=== PATIENT | male | born 2000 | race Two or more races ===

== ENCOUNTER 2024-11-10 10:00 | Emergency (ER) | payer OTHER ==
[~2024-11-10] VITALS: Ht 175.3 cm; Wt 84.1 kg
[2024-11-10 10:49] VITALS: BP 140/85; PULSE 96; RESP 18; TEMP 98.8; O2SAT 97
[2024-11-10] MEDS: KETOROLAC TROMETH 60MG/2ML VIAL IM ONE (11:39)
[2024-11-10] MEDS ORDERED: IBUP-1456 PO (11:58)
[2024-11-10] MEDS ORDERED: CEPH500C PO (11:58)
--- NOTE | 2024-11-10 12:01 | ED.PDOC ---
HPI Comments A 24-YEAR-OLD MALE PRESENTS WITH A CHIEF COMPLAINT OF LACERATION TO SCALP. PATIENT HAS AN IRREGULAR, COMPLEX LACERATION TO THE BACK OF HIS SCALP. PATIENT REPORTS THAT HE WAS SEEN AT [facility] AND HAD A CT SCAN OF HIS HEAD THAT WAS UNREMARKABLE. PATIENT REPORTS THAT HE FELL AND SCRAPPED THE BACK OF HIS HEAD ON THE FLOOR. LACERATION REPAIRED BY JAQUELINE BUT LACERATION STARTED BLEEDING TODAY WITH BLOOD CLOTS. PATIENT DENIES LOC OR HEADACHE AT THIS TIME. PATIENT DENIES VISION CHANGES, HEADACHE, EYE PAIN, NECK PAIN, OR ABDOMINAL PAIN. NO OTHER SYMPTOMS OR MODIFYING FACTORS PRESENT AT THIS TIME. Chief Complaint: Laceration Time Seen by MD: 11:50 Reviewed Notes: Nurses Notes, Medications, Allergies Home Meds Active Scripts Ibuprofen (Ibuprofen) 800 Mg Tab, 1 TAB PO TID, #30 TAB Prov:PEG PALACIOS 11/10/24 Cephalexin Monohydrate (Cephalexin) 500 Mg Cap, 1 CAP PO QID, #40 CAP Prov:PEG PALACIOS 11/10/24 Information Source: Patient Mode of Arrival: Ambulatory Severity: Moderate Severity of Laceration: Deformity, Controlled Bleeding Complexity: Complex Timing: Days Prehospital treatment: None Laceration Location: Head Last Tetanus: UTD Laceration Length (cm): 5 Skin Type: Irregular Depth of Injury: Skin Capillary Refill: < 3 seconds Associated Signs and Symptoms: None Past Medical History PAST MEDICAL HISTORY: Denies Surgical History: Denies all surgeries Family History Family History: Reviewed,noncontributory to illness Social History Smoker: Non-Smoker Alcohol: Denies ETOH Use Drugs: Denies Drug Use Lives In: Home Constitutional: denies: chills, diaphoresis, fatigue, fever, malaise, sweats, weakness, others EENTM: denies: blurred vision, double vision, ear bleeding, ear discharge, ear drainage, ear pain, ear ringing, eye pain, eye redness, hearing loss, mouth pain, mouth swelling, nasal discharge, nose bleeding, nose congestion, nose pain, photophobia, tearing, throat pain, throat swelling, voice changes, others Respiratory: denies: cough, hemoptysis, orthopnea, SOB at rest, shortness of breath, SOB with excertion, stridor, wheezing, others Cardiovascular: denies: chest pain, dizzy spells, diaphoresis, Dyspnea on exertion, edema, irregular heart beat, left arm pain, lightheadedness, palpitations, PND, syncope, others Gastrointestinal: denies: abdomen distended, abdominal pain, blood streaked bowels, constipated, diarrhea, dysphagia, difficulty swallowing, hematemesis, melena, nausea, poor appetite, poor fluid intake, rectal bleeding, rectal pain, vomiting, others Genitourinary: denies: burning, dysuria, flank pain, frequency, hematuria, incontinence, penile discharge, penile sore, pain, testicle pain, testicle swelling, urgency, others Neurological: denies: dizziness, fainting, headache, left sided numbness, left sided weakness, numbness, paresthesia, pre-existing deficit, right sided numbness, right sided weakness, seizure, speech problems, tingling, tremors, weakness, others Musculoskeletal: denies: back pain, gout, joint pain, joint swelling, muscle pain, muscle stiffness, neck pain, others Integumetry: reports: laceration (SCALP); denies: bruises, change in color, change in hair/nails, dryness, lesions, lumps, rash, wounds, others Allergic/Immunocompromised: denies: Difficulty Healing, Frequent Infections, Hives, Itching, others Hematologic/Lymphatic: denies: anemia, blood clots, easy bleeding, easy bruising, swollen glands, others Endocrine: denies: excessive hunger, excessive sweating, excessive thirst, excessive urination, flushing, intolerance to cold, intolerance to heat, unexplained weight gain, unexplained weight loss, others Psychiatric: denies: anxiety, bipolar disorder, depression, hopeless, panic disorder, schizophrenia, sleepless, suicidal, others All Other Systems: Reviewed and Negative Physical Exam General Appearance: No Apparent Distress, Normal HEENT: Head (SCALP LACERATION OPENED WITH BLOOD CLOTS, NO BONY TENDERNESS AND SWELLING, NO DEFORMITY. ), Normal ENT Inspection, PERRL/EOMI, Pharynx Normal, TMs Normal Neck: Full Range of Motion, Non-Tender, Normal, Normal Inspection Respiratory: Chest Non-Tender, Lungs Clear, No Accessory Muscle Use, No Respiratory Distress, Normal Breath Sounds Cardiovascular: No Edema, No JVD, No Murmur, No Gallop, Normal Peripheral Pulses, Regular Rate/Rhythm Breast Exam: Deferred Gastrointestinal: No Organomegaly, Non Tender, No Pulsatile Mass, Normal Bowel Sounds, Soft Genitalia: Deferred Pelvic: Deferred Rectal: Deferred Extremities: No calf tenderness, Normal capillary refill, Normal inspection, Normal range of motion, Non-tender, No pedal edema Musculoskeletal : Apperance: Normal Neurologic: Alert, theatrical agent II-XII nml as Tested, No Motor Deficits, Normal Affect, Normal Mood, No Sensory Deficits Cerebellar Function: Normal Reflexes: Normal Skin: Dry, Lacerations (5CM IRREGULAR LACERATION ON THE TOP OF SCALP WITH HEMATOMA AND BLOOD CLOTS, NO BLEEDING AND FB. ), Normal Color, Warm Peripheral Pulses: 2+ carotid (R), 2+ carotid (L) Lymphatic: No Adenopathy Was a procedure done? Was a procedure done?: Yes Sedation Sedation?: No Laceration Repair : Location TOP OF SCALP Length 5CM Laceration Repair Prep: Saline Laceration Repair Wound Comple: epidermis/dermis repair Laceration Repair: Number of sutures (10), SQ, Jaqueline, Gauze Informed consent obtained: No Risks, benefits, and alternati: Yes Notes OLD JAQUELINE REMOVED DUE TO BLOOD CLOTS. BLOOD CLOTS WERE CLEANED AND REMOVED AND NEW JAQUELINE WERE PLACED. PATIENT HAS TOTAL OF 10 JAQUELINE. Images 1 - 2 - Differential diagnosis Generic Laceration: Laceration X-Ray, Labs, Meds, VS Vital Signs Date Time Temp Pulse Resp B/P (MAP) Pulse Ox O2 Delivery O2 Flow Rate FiO2 11/10/24 10:49 96 18 97 Room Air 11/10/24 10:49 98.8 96 18 140/85 (103) 97 98.8 11/10/24 10:16 98.8 96 18 140/85 (103) 97 Current Medications Medications (Trade) Dose Ordered Sig/Benny Route Start Time Stop Time Status Last Admin Ketorolac Tromethamine (Toradol Injection) 30 mg ONCE ONCE IM 11/10/24 11:45 11/10/24 11:46 DC 11/10/24 11:39 X-Ray, Labs, Meds, VS Comment EXTERNAL MEDICAL RECORDS REVIEWED: [NONE] INDEPENDENT HISTORIANS: [NONE] SOCIAL DETERMINANTS OF HEALTH: [NONE] LABS ORDERED: NONE REVIEWED AND INTERPRETED RESULTS: NONE IMAGING ORDERED: NONE TREATMENTS ORDERED: JAQUELINE TO SCALP X 10 TOTAL PROCEDURES PERFORMED: LACERATION REPAIR AND TORADOL 60MG IM CRITICAL CARE TIME: NONE I HAVE DISCUSSED THE PATIENT WITH THE ATTENDING PHYSICIAN DR. MCKAY AND HE AGREES WITH THE PATIENT'S PLAN OF CARE AND DISPOSITION. GIVEN THE HISTORY AND PRESENT ILLNESS OF THE PATIENT, AFTER REVIEWING LABS, IMAGING, AND COURSE OF TREATMENT ADMINISTERED DURING THEIR ED VISIT, THERE IS LOW SUSPICION FOR RED FLAG FINDINGS. BASED ON HISTORY OF PRESENT ILLNESS, AND PHYSICAL EXAM, PATIENT WILL BE DISCHARGED HOME. DISCUSSED PLAN FOR DISCHARGE HOME WITH RX []. MEDICATION WARNINGS GIVEN. SHARED DECISION MAKING: DISCUSSED WITH PATIENT THAT THEIR WORKUP WAS NORMAL. PATIENT INSTRUCTED TO FOLLOW UP WITH PRIMARY CARE PROVIDER IN 1-2 DAYS FOR RE- EVALUATION OF SYMPTOMS. PATIENT VERBALIZES UNDERSTANDING TO RETURN TO ED FOR NEW OR WORSENING SYMPTOMS OR IF FOLLOW UP WITH PCP CANNOT BE OBTAINED. PATIENT FEELS COMFORTABLE GOING HOME AT THIS TIME. ALL QUESTIONS ADDRESSED AT TIME OF DISCHARGE. Time of 1ST Reevaluation: 12:20 Reevaluation 1ST: Improved Patient Education/Counseling: Diagnosis, Treatment, Prognosis Family Education/Counseling: Diagnosis, Treatment, Need For Follow Up Medical Screening: No EMC Exist At This Time Departure 1 Departure Time of Disposition: 12:13 Impression: Primary Impression: Laceration of scalp Qualified Codes: S01.01XA - Laceration without foreign body of scalp, initial encounter Additional Impression: Hematoma of scalp Qualified Codes: S00.03XA - Contusion of scalp, initial encounter Disposition: 01 HOME / SELF CARE / HOMELESS Condition: Stable Additional Instructions: FOLLOW UP WITH YOUR PCP IN 1-2 DAYS, RETURN TO THE ER IF YOUR SYMPTOMS WORSEN. e-Prescriptions Ibuprofen (Ibuprofen) 800 Mg Tab 1 TAB PO TID, #30 TAB Prov: PEG PALACIOS 11/10/24 Cephalexin Monohydrate (Cephalexin) 500 Mg Cap 1 CAP PO QID, #40 CAP Prov: PEG PALACIOS 11/10/24 Discharged With: Self, Relative Critical Care Note Critical Care Time?: No Stability Stability form required: No Heart Score Heart Score: Heart Score Response (Comments) Value History N/A 0 EKG N/A 0 Age N/A 0 Risk Factors N/A 0 Troponin N/A 0 Total 0 I personally scribed for PEG PALACIOS ([email or web address]) on 11/10/24 at 12:01. Electronically submitted by Mohit Mckeon ([email or web address]). I personally scribed for PEG PALACIOS ([email or web address]) on 11/10/24 at 12:06. Electronically submitted by Mohit Mckeon ([email or web address]). PEG PALACIOS Nov 10, 2024 12:01
== END 2024-11-10 12:10 | disposition home or self-care (01) ==
LOC: ER 10:00 → EEVIPCON 10:00 → ER 12:09
DX: S01.01XA Laceration without foreign body of scalp, initial encounter (principal); W18.39XA Other fall on same level, initial encounter; Y93.89 Activity, other specified; Y92.89 Other specified places as the place of occurrence of the external cause; Y99.8 Other external cause status
CPT/HCPCS: 12002; 96372; 99283; J1885